=== PATIENT | male | born 1990 | race Caucasian/White ===

== ENCOUNTER 2017-02-04 01:40 | Emergency (ER) | payer OTHER ==
[2017-02-04] MEDS ORDERED: IPRATROPIUM/ALBUTEROL 0.5-2.5 MG/3 ML AMPUL NEB ONE (01:59)
[2017-02-04] MEDS ORDERED: PREDNISONE 20 MG TABLET PO ONE (01:59)
[2017-02-04] MEDS ORDERED: ALBUTEROL SULFATE 0.083% NEB 2.5 MG/3 ML AMPUL NEB SCH (02:14)
--- NOTE | 2017-02-04 03:27 | ER Document Report ---
ED General - General Chief Complaint: Breathing Difficulty Stated Complaint: BREATHING DIFFICULTY,COUGH Notes: Patient is a pleasant 26-year-old male who presents with complaint of wheezing and coughing for last several days. No fevers. No vomiting. No diarrhea. He is a smoker. He did have asthma as a child. No difficulty with asthma or wheezing since middle school age. No other complaints at this time. In triage she was noted to have a lot of wheezing. He was therefore given a albuterol treatment and the patient says he feels much improved after the albuterol treatment. TRAVEL OUTSIDE OF THE [place] IN LAST 30 DAYS: No - Related Data Allergies/Adverse Reactions: No Known Allergies Allergy (Verified 04/13/15 21:42) Past Medical History - Social History Smoking Status: Current Every Day Smoker Chew tobacco use (# tins/day): No Frequency of alcohol use: None Drug Abuse: None Family History: Reviewed & Not Pertinent Patient has suicidal ideation: No Patient has homicidal ideation: No Pulmonary Medical History: Reports: Hx Bronchitis Renal/ Medical History: Denies: Hx Peritoneal Dialysis - Immunizations Immunizations up to date: Yes Hx Diphtheria, Pertussis, Tetanus Vaccination: Yes Review of Systems - Review of Systems Notes: My Normal Review Basic REVIEW OF SYSTEMS: CONSTITUTIONAL : Denies fever, chills, or sweats. Denies recent illness. EENT: Denies eye, ear, throat, or mouth pain or symptoms. Denies nasal or sinus congestion. RESPIRATORY: Wheezing and difficulty breathing. GASTROINTESTINAL: Denies abdominal pain. Denies nausea, vomiting, or diarrhea. Denies constipation. Last BM: GENITOURINARY: Denies difficulty urinating, painful urination, burning, frequency, or blood in urine. MUSCULOSKELETAL: Denies neck or back pain or joint pain or swelling. SKIN: Denies rash or skin lesions. NEUROLOGICAL: Denies altered mental status or loss of consciousness. ALL OTHER SYSTEMS REVIEWED AND NEGATIVE. Physical Exam - Vital signs Vitals: Temp Pulse Resp BP Pulse Ox 97.6 F 82 16 138/82 H 94 02/04/17 01:43 02/04/17 01:43 02/04/17 01:43 02/04/17 01:43 02/04/17 01:43 - Notes Notes: General Appearance: Well nourished, alert, cooperative, no acute distress, no obvious discomfort. Well-appearing. Vitals: reviewed, See vital signs table. Head: no swelling or tenderness to the head Eyes: PERRL, EOMI, Conjuctiva clear Mouth: No decreasd moisture Throat: No tonsillar inflammation, No airway obstruction, No lymphadenopathy Neck: Supple, no neck tenderness, No thyromegaly Lungs: Clear lung mora. No difficulty breathing. Good air exchange. My auscultation is post nebulizer treatment. Heart: Normal rate, Regular rythm, No murmur, no rub Skin: warm, dry, appropriate color, no rash Neuro: speech clear, oriented x 3, normal affect, responds appropriately to questions. Course - Re-evaluation Re-evalutation: 02/04/17 04:59 Patient has signs consistent with bronchitis on physical exam and history. Responded well to albuterol treatment. He'll be discharged home with an inhaler as well as prednisone. He strongly encouraged to quit smoking. Encouraged return to ER immediately if he has any difficulty breathing, recurrent wheezing not improving with the inhaler, or feels unwell. Patient agrees with plan and will be discharged home. Dictation of this chart was performed using voice recognition software; therefore, there may be some unintended grammatical errors. - Vital Signs Vital signs: Temp Pulse Resp BP Pulse Ox 97.6 F 82 16 138/82 H 94 02/04/17 01:43 02/04/17 01:43 02/04/17 01:43 02/04/17 01:43 02/04/17 01:43 Discharge - Discharge Clinical Impression: Bronchitis Condition: Good Disposition: HOME, SELF-CARE Additional Instructions: BRONCHITIS WITH BRONCHOSPASM (WHEEZING): You have bronchitis with bronchospasm (wheezing). Sometimes people develop wheezing with a chest cold. This occurs either because of an underlying tendency toward asthma or because the virus itself irritates the bronchial tubes. This irritation causes cough, shortness of breath, and wheezing. Emergency treatment of bronchospasm may include adrenaline shots or bronchodilator aerosol. You may feel lightheaded and have a rapid pulse for an hour or two. Rest and get plenty of fluids. At home, we'll treat you with a bronchodilator inhaler. Corticosteroids may be required for some patients. Until you recover, avoid chemical fumes, dusts, pollens, and exercising in very cold or dry air. If you smoke, stop now! Most cases of bronchitis get better without antibiotics. We prescribe antibiotics when we believe bacteria are damaging your airways, or if there's high risk the bronchitis will worsen into pneumonia. Increase your fluid intake. A cool mist humidifier may make your lungs more comfortable. An expectorant (cough medicine that loosens phlegm) can help. Repeated episodes of bronchitis and bronchospasm may result in lung damage -- for example, chronic bronchitis, recurrent pneumonias, or emphysema. If you develop a fever, increased wheezing, chest pain, or severe shortness of breath, you should contact the doctor immediately. STEROID MEDICATION: You have been given an injection of or oral medicine of the cortisone/ steroid class. This medication is used to control inflammation or allergy. Ion t is usually only given for a short period of time, until the acute process subsides. There are usually no side effects from short-term use of cortisone-like medications. Some persons feel an increased sense of well-being and are not sleepy at bedtime. Long-term use of cortisone medications is best avoided, unless required for a severe condition. If your condition does not remit, or relapses after the course of corticosteroid medication, you should consult your physician. SMOKING: If you smoke, you should stop smoking. The tar and chemicals in cigarette smoke are harmful. Smoking has been shown to cause: emphysema chronic bronchitis lung cancer mouth and throat cancer stomach and pancreas cancer premature aging defects In addition, smoking increases ear and lung infections in children of smokers. FOLLOW-UP CARE: If you have been referred to a physician for follow-up care, call the physician s office for an appointment as you were instructed or within the next two days. If you experience worsening or a significant change in your symptoms, notify the physician immediately or return to the Emergency Department at any time for re-evaluation. Please use inhaler as 2 puffs every 4 hours as needed for cough or wheezing. Please return to ER immediately if you have worsening wheezing despite using the inhaler, difficulty breathing, or fevers. Prescriptions: Prednisone [Deltasone 20 mg Tablet] 3 tab PO DAILY 4 Days Forms: Return to Work
[2017-02-04] MEDS ORDERED: ALBUTEROL SULFATE HFA (90 MCG/PUFF) 8 GM MDI (1 MDI/ER DISP) IH ONE (04:50)
[2017-02-04 05:20] VITALS: BP 127/71
== END 2017-02-04 05:20 | disposition home or self-care (01) ==
LOC: ER 01:40
DX: J40 Bronchitis, not specified as acute or chronic (principal); R06.2 Wheezing; R05 Cough; F17.200 Nicotine dependence, unspecified, uncomplicated
CPT/HCPCS: 94640 ×2; 99284; 71020; J7512; J3490; J7620

== ENCOUNTER 2017-03-23 01:26 | Emergency (ER) | payer OTHER ==
[2017-03-23] MEDS ORDERED: IPRATROPIUM/ALBUTEROL 0.5-2.5 MG/3 ML AMPUL NEB ONE (01:34)
[2017-03-23] MEDS ORDERED: METHYLPREDNISOLONE INJ 125 MG/2 ML SDV IV ONE (01:34)
[2017-03-23] MEDS: ALBUTEROL SULFATE 0.083% NEB 2.5 MG/3 ML AMPUL NEB SCH (01:49)
--- NOTE | 2017-03-23 01:52 | ER Document Report ---
ED General - General Chief Complaint: Asthma Exacerbation Stated Complaint: TROUBLE BREATHING Notes: Patient is a 26-year-old male presents with complaint of asthma exacerbation. He says he gets intermittent asthma attacks but they're not frequent. He does not usually use inhaler on a regular basis. Sister having some difficulty breathing today. [place] [facility] [place] [facility] [place] his breathing became worse and therefore he came to ER. He does smoke. No recent fevers or infections. No URI type symptoms. No other complaints at this time. TRAVEL OUTSIDE OF THE [place] IN LAST 30 DAYS: No - Related Data Allergies/Adverse Reactions: No Known Allergies Allergy (Verified 04/13/15 21:42) Past Medical History - Social History Smoking Status: Current Every Day Smoker Frequency of alcohol use: None Drug Abuse: None Family History: Reviewed & Not Pertinent Pulmonary Medical History: Reports: Hx Bronchitis Renal/ Medical History: Denies: Hx Peritoneal Dialysis - Immunizations Immunizations up to date: Yes Hx Diphtheria, Pertussis, Tetanus Vaccination: Yes Review of Systems - Review of Systems Notes: My Normal Review Basic REVIEW OF SYSTEMS: CONSTITUTIONAL : Denies fever, chills, or sweats. Denies recent illness. EENT: Denies eye, ear, throat, or mouth pain or symptoms. Denies nasal or sinus congestion. CARDIOVASCULAR: Denies chest pain. RESPIRATORY: Wheezing and difficulty breathing. GASTROINTESTINAL: Denies abdominal pain. Denies nausea, vomiting, or diarrhea. Denies constipation. Last BM: GENITOURINARY: Denies difficulty urinating, painful urination, burning, frequency, or blood in urine.P: MUSCULOSKELETAL: Denies neck or back pain or joint pain or swelling. SKIN: Denies rash or skin lesions. NEUROLOGICAL: Denies altered mental status or loss of consciousness. Denies headache. Denies weakness or paralysis or loss of use of either side. Denies problems with gait or speech. Denies sensory or motor loss. ALL OTHER SYSTEMS REVIEWED AND NEGATIVE. Physical Exam - Vital signs Vitals: Temp Pulse Resp BP Pulse Ox 97.4 F 100 22 H 136/101 H 93 03/23/17 01:35 03/23/17 01:35 03/23/17 01:35 03/23/17 01:35 03/23/17 01:35 - Notes Notes: General Appearance: Well nourished, alert, cooperative, no acute distress, no obvious discomfort. Patient currently receiving nebulizer treatment. Vitals: reviewed, See vital signs table. Head: no swelling or tenderness to the head Eyes: PERRL, EOMI, Conjuctiva clear Mouth: No decreasd moisture Lungs: Mild scattered wheezing. Good air exchange bilaterally. Heart: Normal rate, Regular rythm, No murmur, no rub Abdomen: Normal BS, soft, No rigidity, No abdominal tenderness, No guarding, no rebound, no abdominal masses, no organomegaly Extremities: strength 5/5 in all extremities, good pulses in all extremities, no swelling or tenderness in the extremities, no edema. Skin: warm, dry, appropriate color, no rash Neuro: speech clear, oriented x 3, normal affect, responds appropriately to questions. Course - Re-evaluation Re-evalutation: 03/23/17 02:55 Patient's is feeling improved however he still has tightness and wheezing this lungs. I'll give him some magnesium as well as repeat a nebulizer treatment. - Vital Signs Vital signs: Temp Pulse Resp BP Pulse Ox 97.4 F 100 17 115/69 95 03/23/17 01:35 03/23/17 01:35 03/23/17 05:00 03/23/17 05:00 03/23/17 05:00 - Transfer of Care Notes: 03/23/17 05:11 Patient's wheezing is now gone. He looks and feels improved. He'll be discharged home with prescription for prednisone as well as given an albuterol inhaler. He is encouraged return to ER if he has increasing difficulty breathing, recurrent wheezing, or feels unwell in anyway. He is strongly encouraged to quit smoking. Patient agrees with plan and will be discharged home. Dictation of this chart was performed using voice recognition software; therefore, there may be some unintended grammatical errors. Discharge - Discharge Clinical Impression: Asthma attack Condition: Good Disposition: HOME, SELF-CARE Additional Instructions: ASTHMA: You have been diagnosed as having asthma. This is a condition where there is episodic tightness in the bronchial tubes. Allergies, infections, and polluted or cold air may be contributing factors. Emergency treatment of a severe asthma attack may include adrenaline shots , or bronchodilator aerosol. You may feel lightheaded, have a decreased exercise tolerance and a rapid pulse for an hour or two. Rest and get plenty of fluids. Home treatment of asthma requires bronchodilator drugs. These can be administered by injection, inhalation, or by mouth. Antibiotics and corticosteroids may be required for some patients. You should avoid chemical fumes, dusts, pollens, and exercising in very cold or dry air. If you smoke, stop!! If you develop a fever, increased wheezing, chest pain, or severe shortness of breath, you should contact the doctor immediately. STEROID MEDICATION: You have been given an injection of or oral medicine of the cortisone/ steroid class. This medication is used to control inflammation or allergy. Ion t is usually only given for a short period of time, until the acute process subsides. There are usually no side effects from short-term use of cortisone-like medications. Some persons feel an increased sense of well-being and are not sleepy at bedtime. Long-term use of cortisone medications is best avoided, unless required for a severe condition. If your condition does not remit, or relapses after the course of corticosteroid medication, you should consult your physician. INHALED BRONCHODILATORS: You have received treatment(s) of and/or prescription for an inhaled bronchodilator -- a medication which stimulates the airways in the lung to dilate. This improves the flow of air in asthma, bronchitis, and emphysema. These medicines have some similarity to adrenaline, and can cause similar side effects: shakiness, racing heart, and a sense of nervousness. These side effects decrease with time. Contact your doctor if these side effects are severe. Do not over-use the medicine. Too-frequent use of the inhaler may make it ineffective. Call your doctor if the inhaler is not controlling your symptoms at the prescribed doses. SMOKING: If you smoke, you should stop smoking. The tar and chemicals in cigarette smoke are harmful. Smoking has been shown to cause: emphysema chronic bronchitis lung cancer mouth and throat cancer stomach and pancreas cancer premature aging defects In addition, smoking increases ear and lung infections in children of smokers. FOLLOW-UP CARE: If you have been referred to a physician for follow-up care, call the physician s office for an appointment as you were instructed or within the next two days. If you experience worsening or a significant change in your symptoms, notify the physician immediately or return to the Emergency Department at any time for re-evaluation. Please return to the ER immediately if you develop recurrent difficulty breathing, fevers, recurrent wheezing not responding to your inhaler, or if you have further concerns. Please use your inhaler as 2 puffs every 4 hours as needed. Please follow up with your doctor in 1-2 days for close reevaluation. Prescriptions: Prednisone [Deltasone 20 mg Tablet] 3 tab PO DAILY 3 Days
[2017-03-23] MEDS ORDERED: ALBUTEROL SULFATE 0.083% NEB 2.5 MG/3 ML AMPUL NEB ONE (02:54)
[2017-03-23] MEDS: MAGNESIUM SULFATE/D5W 100 ML IV SCH ×2 (03:01→03:02)
[2017-03-23] MEDS ORDERED: ALBUTEROL SULFATE HFA (90 MCG/PUFF) 8 GM MDI (1 MDI/ER DISP) IH ONE (05:01)
[2017-03-23 05:10] VITALS: BP 115/69
== END 2017-03-23 05:10 | disposition home or self-care (01) ==
LOC: ER 01:26
DX: J45.901 Unspecified asthma with (acute) exacerbation (principal); F17.200 Nicotine dependence, unspecified, uncomplicated
CPT/HCPCS: 94640 ×2; 99284; 96375; 96365; 71010; J2930; J3475; J3490; J7620